=== PATIENT | female | born 1970 | race Caucasian/White ===

== ENCOUNTER 2023-10-05 06:02 | Day surgery (SDC) | payer OTHER ==
[2023-10-05 06:35] VITALS: RESP 18; O2SAT 98
[2023-10-05] MEDS: Lactated Ringers 1,000 ML IV SCH (06:48)
[2023-10-05] MEDS ORDERED: DIPRIVAN 200 MG/20 ML IV ONE ×2 (07:53→08:08)
[2023-10-05] MEDS ORDERED: Versed 2 MG/2 ML Injection ONE (07:53)
[2023-10-05 09:08] VITALS: TEMP 97.8
[2023-10-05 09:12] VITALS: BP 122/78; PULSE 78
--- NOTE | 2023-10-05 09:33 | OP ---
SURGERY DATE: 10/05/2023 SURGERY TIME: 754 PREOPERATIVE DIAGNOSIS: 1. SCREENING EXAM. POSTOPERATIVE DIAGNOSIS: 1. NORMAL COLON. PROCEDURE: 1. Colonoscopy. SURGEON: Dr. Swift. ANESTHESIA: MAC. Medications given by the Anesthesia Department. BRIEF HISTORY: The patient is a 53 y/o WF presenting now for screening colonoscopy. The patient was appraised the risks of the procedure including the risk of perforation, phlebitis, untoward reaction to medication, bleeding, and missed lesions. The patient verbalized her understanding and desired to have the procedure performed. DESCRIPTION OF PROCEDURE: The patient was given the medications by the Anesthesia Department. She had continuous pulse oximetry, ECG monitoring, and intermittent BP monitoring during the examination. She was placed in the left lateral decubitus position. A digital rectal examination was performed and revealed normal anal sphincter tone and no masses. The flexible Olympus pediatric colonoscope was used to intubate the rectum. A view of the colon was developed sequentially to the cecum. Upon insertion and withdrawal, including a retroflex view in the rectum, no mucosal lesions were encountered. The scope was then removed from the patient who tolerated the procedure well and was sent back to OP recovery in good condition. The prep was noted to be fair to good.
== END 2023-10-05 09:19 | disposition home or self-care (01) ==
LOC: SDC 06:02
PROVIDERS: ATTEND Family Medicine
DX: Z12.11 Encounter for screening for malignant neoplasm of colon (principal)
CPT/HCPCS: J2250; J2704